=== PATIENT | male | born 1995 ===

== ENCOUNTER 2022-01-09 10:10 | Outpatient (CLI) | payer OTHER, SELFPAY ==
[2022-01-09 13:46] LABS: Chloride* 102 mmol/L (96-114)
[2022-01-09 13:47] LABS: Potassium* 4.4 mmol/L (3.6-5.1); Sodium* 139 mmol/L (135-149)
[2022-01-09 13:49] LABS: Cholesterol* 106 mg/dL (90-199); Estimated Glomerular Filt Rate 106 ml/min
[2022-01-09 13:50] LABS: Blood Urea Nitrogen* 16 mg/dL (5-24); Calcium* 9.5 mg/dL (8.4-10.6); Carbon Dioxide* 28 mmol/L (20-32); Glucose* 99 mg/dL (60-115); HDL Cholesterol* 30 mg/dL (>=40); LDL Cholesterol Calculated 63 mg/dL (<100); Triglycerides* 67 mg/dL (40-149)
== END 2022-01-09 10:11 | disposition home or self-care (01) ==
PROVIDERS: PCP Family Medicine; Visit Provider Family Medicine
DX: Z00.00 Encounter for general adult medical examination without abnormal findings (principal); Z83.42 Family history of familial hypercholesterolemia; Z13.6 Encounter for screening for cardiovascular disorders
CPT/HCPCS: 80048; 80061

== ENCOUNTER 2025-04-13 19:10 | Outpatient (CLI) | payer BC, SELFPAY | END 2025-04-13 19:11 | disposition home or self-care (01) | PROVIDERS: PCP Family Medicine; Visit Provider Family Medicine | DX: Z01.818 Encounter for other preprocedural examination (principal); Z83.42 Family history of familial hypercholesterolemia | CPT/HCPCS: 80048; 82465; 83718 ==